=== PATIENT | female | born 1995 | race Caucasian/White ===

== ENCOUNTER 2016-10-10 01:34 | Emergency (ER) | payer MEDICAID ==
[2016-10-10] MEDS ORDERED: SODIUM CHLORIDE 0.9% 1,000 ML IV ONE (02:26)
[2016-10-10] MEDS ORDERED: ONDANSETRON 4 MG/2 ML VIAL IVP STA (02:26)
[2016-10-10] MEDS ORDERED: ONDANSETRON 4 MG/2 ML VIAL ONE (02:36)
== END 2016-10-10 04:27 | disposition home or self-care (01) ==
DX: K52.9 Noninfective gastroenteritis and colitis, unspecified (principal); E86.0 Dehydration; R51 Headache; F17.200 Nicotine dependence, unspecified, uncomplicated

== ENCOUNTER 2017-03-08 00:37 | Emergency (ER) | payer MEDICAID ==
--- NOTE | 2017-03-08 01:57 | ED Physician Documentation ---
PD HPI HEENT - Stated complaint Stated Complaint: RASH ON TONGUE - Chief complaint Chief Complaint: Heent - History obtained from History obtained from: Patient - History of Present Illness Timing - onset: Enter time (20:00) Timing - details: Abrupt onset Location: Mouth (tongue) Improves: Nothing Worsens: Other (eating or drinking (contact with tongue)) Associated symptoms: No: Fever, Unable to swallow Similar symptoms before: Has not had sx before Recently seen: Not recently seen - Additional information Additional information: c/o "white rash on my tongue" (per patient) associated with pain. Symptoms began 8 PM tonight. Review of Systems Constitutional: reports: Chills, Fatigue, Sweats. denies: Fever Ears: denies: Ear pain Throat: denies: Sore throat PD PAST MEDICAL HISTORY - Past Medical History Past Medical History: Yes Cardiovascular: None Respiratory: None Endocrine/Autoimmune: None GI: None ENGINEER INTERN: None : None HEENT: Other Psych: None Musculoskeletal: None - Past Surgical History Past Surgical History: No - Present Medications Home Medications: Ambulatory Orders Medication Instructions Recorded Confirmed Nystatin 5 ml PO QID 7 Days 03/08/17 - Allergies Allergies/Adverse Reactions: Allergies Allergy/AdvReac Type Severity Reaction Status Date / Time No Known Drug Allergies Allergy Verified 03/08/17 00:47 - Social History Does the pt smoke?: Yes Smoking Status: Current every day smoker Does the pt drink ETOH?: No Does the pt have substance abuse?: No - Immunizations Immunizations are current?: No - POLST Patient has POLST: No PD ED PE NORMAL - Vitals Vital signs reviewed: Yes - General General: Alert and oriented X 3, No acute distress, Well developed/nourished - HEENT HEENT: Ears normal, Moist mucous membranes, Other (white, pasty coating to tongue, predominantly around lateral aspects. ) - Neck Neck: Supple, no meningeal sign Results - Vitals Vitals: Vital Signs - 24 hr 03/08/17 03/08/17 00:43 02:42 Temperature 36.8 C 37.2 C Heart Rate 101 H 82 Respiratory 16 20 Rate Blood Pressure 119/79 120/70 O2 Saturation 98 98 Oxygen O2 Source Room air PD MEDICAL DECISION MAKING - ED course Complexity details: considered differential, d/w patient Departure - Departure Disposition: 01 Home, Self Care Clinical Impression: Oral thrush Condition: Good Instructions: Lavonne Infec Thrush Follow-Up: [facility] [Provider Group] [facility] [Provider Group] Prescriptions: Nystatin 5 ml PO QID 7 Days Comments: Your exam does not appear to be typical of thrush, but since thrush is a possibility and the treatment is safe and effective, a medication to treat thrush has been prescribed. Forms: Activity restrictions Discharge Date/Time: 03/08/17 02:54
[2017-03-08] MEDS ORDERED: NYSTATIN 500000 UNITS/5 ML UDC PO STA (02:12)
[2017-03-08] MEDS ORDERED: MAGIC MOUTHWASH 120 ML BOTTLE PO STA (02:14)
[2017-03-08] MEDS ORDERED: NYSTATIN 500000 UNITS/5 ML UDC PO ONE (02:15)
[2017-03-08 02:43] VITALS: BP 120/70
== END 2017-03-08 02:54 | disposition home or self-care (01) ==
LOC: ED 00:37
DX: B37.0 Candidal stomatitis (principal); F17.200 Nicotine dependence, unspecified, uncomplicated
CPT/HCPCS: 99283; A9270

== ENCOUNTER 2017-06-24 16:11 | Emergency (ER) | payer MEDICAID ==
[2017-06-24 16:28] VITALS: BP 113/71
[2017-06-24 16:44] LABS: RAPID STREP SCREEN REAGENT QC YELLOW (YELLOW)
--- NOTE | 2017-06-24 18:48 | ED Physician Documentation ---
PD HPI URI - Stated complaint Stated Complaint: SORE THROAT - Chief complaint Chief Complaint: Heent - History obtained from History obtained from: Patient - History of Present Illness Timing - onset: How many days ago (few) Timing duration: Days Timing details: Gradual onset, Still present Associated symptoms: Sore throat, Swollen nodes (left anterior). No: Fever, Nasal congestion, Dry cough Contributing factors: No: Sick contact, Travel, Immunocompromised Similar symptoms before: Has not had sx before Recently seen: Not recently seen Review of Systems Constitutional: denies: Fever, Chills Nose: denies: Rhinorrhea / runny nose, Congestion Throat: reports: Dental pain / toothache (left lower wisdom tooth), Sore throat , Swollen tonsils Cardiac: denies: Chest pain / pressure, Palpitations Respiratory: denies: Dyspnea, Cough GI: denies: Abdominal Pain, Nausea, Vomiting : denies: Dysuria, Frequency Skin: denies: Rash PD PAST MEDICAL HISTORY - Past Medical History Cardiovascular: None Respiratory: None Endocrine/Autoimmune: None GI: None LEGAL COORDINATOR: None : None HEENT: Other Psych: None Musculoskeletal: None - Past Surgical History Past Surgical History: No - Present Medications Home Medications: Ambulatory Orders Medication Instructions Recorded Confirmed Cephalexin [Keflex] 500 mg PO QID #24 capsule 06/24/17 Dexamethasone [Decadron] 4 mg PO DAILY #5 tablet 06/24/17 HYDROcod/ACETAM 5/325 [[place] 5/325] 1 tab PO Q6H PRN #15 tablet 06/24/17 - Allergies Allergies/Adverse Reactions: Allergies Allergy/AdvReac Type Severity Reaction Status Date / Time No Known Drug Allergies Allergy Verified 06/24/17 16:28 - Social History Does the pt smoke?: Yes Smoking Status: Current every day smoker Does the pt drink ETOH?: No Does the pt have substance abuse?: No - Immunizations Immunizations are current?: No - POLST Patient has POLST: No PD ED PE NORMAL - Vitals Vital signs reviewed: Yes - General General: Alert and oriented X 3, No acute distress, Well developed/nourished - HEENT HEENT: No: Pharynx benign (tonsils with redness and some exudate. Left anterior neck with tender large 2-3 cm node without fluctuance. Some dental tenderness left lower with gum over the wisdom tooth some inflammed and swollen. ) - Neck Neck: Supple, no meningeal sign - Cardiac Cardiac: RRR, No murmur - Respiratory Respiratory: Clear bilaterally - Abdomen Abdomen: Soft, Non tender - Derm Derm: Normal color, Warm and dry, No rash - Neuro Neuro: Alert and oriented X 3, No motor deficit, Normal speech Results - Vitals Vitals: Oxygen O2 Source Room air - Labs Labs: Microbiology 06/24/17 16:29 Group A Strep Throat Culture - Final Throat MIXED OROPHARYNGEAL CHELLE PRESENT. NO BETA STREP PRESENT IN CULTURE. Laboratory Tests 06/24/17 16:29 Group A Strep Rapid Negative PD MEDICAL DECISION MAKING - ED course Complexity details: considered differential (tonsil exudative and has 2-3 cm tender anterior node that is tender left neck. ), d/w patient Departure - Departure Disposition: 01 Home, Self Care Clinical Impression: Pain, dental, Cervical adenitis Acute tonsillitis Qualifiers: Pharyngitis/tonsillitis etiology: unspecified etiology Qualified Code(s): J03.90 - Acute tonsillitis, unspecified Condition: Stable Record reviewed to determine appropriate education?: Yes Instructions: ED Cervical Adenitis Abx Tx, ED Strep Pharyngitis Poss Prescriptions: Cephalexin [Keflex] 500 mg PO QID #24 capsule Dexamethasone [Decadron] 4 mg PO DAILY #5 tablet HYDROcod/ACETAM 5/325 [[place] 5/325] 1 tab PO Q6H PRN #15 tablet PRN Reason: Pain Comments: Drink lots of fluids. Tylenol or ibuprofen if needed for fevers and mild pain. Add hydrocodone if needed for worse pain. For the inflammation, use Decadron daily for 5 more days which is a steroid and typically works well for this. Cephalexin antibiotic for the next 6 days for presumed bacterial infection. Recheck if not improving over the next few days. The throat culture will result in 2-3 days to see if that shows the apparent bacterial infection. Discharge Date/Time: 06/24/17 19:20
[2017-06-24] MEDS ORDERED: DEXAMETHASONE 10 MG/ML VIAL PO STA (19:00)
[2017-06-24] MEDS ORDERED: HYDROcod/ACETAM 5/325 MG TABLET PO STA (19:00)
[2017-06-24] MEDS ORDERED: CEPHALEXIN 250 MG CAPSULE PO STA (19:00)
[2017-06-24] MEDS ORDERED: HYDROcod/ACETAM 5/325 MG TABLET ONE (19:11)
[2017-06-24] MEDS ORDERED: DEXAMETHASONE 10 MG/ML VIAL ONE (19:11)
[2017-06-24] MEDS ORDERED: CEPHALEXIN 250 MG CAPSULE PO ONE (19:11)
== END 2017-06-24 19:20 | disposition home or self-care (01) ==
LOC: ED 16:11
DX: I88.9 Nonspecific lymphadenitis, unspecified (principal); J03.90 Acute tonsillitis, unspecified; K08.89 Other specified disorders of teeth and supporting structures; F17.200 Nicotine dependence, unspecified, uncomplicated
CPT/HCPCS: 87070; 87430; 99283; A9270